=== PATIENT | male | born 1975 | race African-American/Black ===

== ENCOUNTER 2020-04-01 19:07 | Emergency (ER) | payer OTHER, BC ==
[2020-04-01 19:18] VITALS: BP 135/85
[2020-04-01] MEDS ORDERED: ACETAMINOPHEN 325 MG TABLET PO ONE (19:38)
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
[2020-04-01] MEDS ORDERED: CYCLOBENZAPRINE HCL 10 MG TABLET PO ONE (21:05)
== END 2020-04-01 21:15 | disposition home or self-care (01) ==
LOC: ER 19:07
DX: M54.2 Cervicalgia (principal); M25.561 Pain in right knee; V89.2XXA Person injured in unspecified motor-vehicle accident, traffic, initial encounter
CPT/HCPCS: 72125; 99284